=== PATIENT | male | born 1975 ===

== ENCOUNTER 2017-02-08 00:30 | Emergency (ER) | payer OTHER ==
[2017-02-08 00:54] VITALS: BMI 30.7
[2017-02-08 01:00] VITALS: TEMP 98.2
--- NOTE | 2017-02-08 01:05 | ED PDOC ---
Arrival/HPI - General Chief Complaint: Abdominal Pain Time Seen by Provider: 02/08/17 00:57 Historian: Patient - History of Present Illness Narrative History of Present Illness (Text): 02/08/17 01:05 Andrea Ellis is a 41 year old male, whose past medical history includes cholecystectomy, who presents to the Emergency department complaining of abdominal pain. Patient states he has been experiencing intermittent lower abdominal pain radiating to right flank pain for 3 weeks. Patient denies any fever, chills, chest pain, shortness of breath, nausea, vomiting, diarrhea, urinary symptoms, neck pain, headache, dizziness, or any other complaints. Time/Duration: < month (3 weeks) Symptom Onset: Gradual Symptom Course: Unchanged Activities at Onset: Rest, Light Context: Home Past Medical History - Provider Review Nursing Documentation Reviewed: Yes - Past History Past History: No Previous - Infectious Disease Hx of Infectious Diseases: None - Tetanus Immunization Tetanus Immunization: Unknown - Reproductive Currently : No - Past Medical History Past Medical History: No Previous - Cardiac Hx Cardiac Disorders: Yes - Pulmonary Hx Respiratory Disorders: No - Neurological Hx Neurological Disorder: No - HEENT Hx HEENT Disorder: No (WEARS RX GLASSES) - Renal Hx Renal Disorder: No - Endocrine/Metabolic Hx Endocrine Disorders: No - Hematological/Oncological Hx Blood Transfusions: No Hx Blood Transfusion Reaction: No - Integumentary Hx Dermatological Disorder: No - Musculoskeletal/Rheumatological Hx Falls: No - Gastrointestinal Hx Gastroesophageal Reflux: Yes - Genitourinary/Gynecological Hx Genitourinary Disorders: No - Psychiatric Hx Depression: No Hx Emotional Abuse: No Hx Physical Abuse: No Hx Substance Use: No - Past Surgical History Past Surgical History: No Previous - Surgical History Hx Cholecystectomy: Yes - Anesthesia Hx Anesthesia Reactions: No Hx Malignant Hyperthermia: No - Suicidal Assessment Feels Threatened In Home Enviroment: No Family/Social History - Physician Review Nursing Documentation Reviewed: Yes Family/Social History: No Known Family HX Smoking Status: Never Smoked Hx Alcohol Use: No Hx Substance Use: No Hx Substance Use Treatment: No Allergies/Home Meds Allergies/Adverse Reactions: Allergies No Known Allergies Allergy (Verified 02/08/17 00:54) Home Medications: Home Meds Medication Instructions Recorded Confirmed No Known Home Med 02/08/17 02/08/17 Review of Systems - Physician Review All systems were reviewed & negative as marked: Yes - Review of Systems Constitutional: Normal. absent: Fevers Eyes: Normal ENT: Normal Respiratory: Normal. absent: SOB, Cough Cardiovascular: Normal. absent: Chest Pain Gastrointestinal: Abdominal Pain. absent: Diarrhea, Nausea, Vomiting Genitourinary Male: Normal. absent: Dysuria, Frequency, Hematuria, Urinary Output Changes Musculoskeletal: Back Pain (+right flank pain). absent: Neck Pain Skin: Normal. absent: Rash Neurological: Normal. absent: Headache, Dizziness Endocrine: Normal Hemo/Lymphatic: Normal Psychiatric: Normal Physical Exam Vital Signs Reviewed: Yes Vital Signs Temp Pulse Resp BP Pulse Ox 02/08/17 03:19 80 16 134/80 98 02/08/17 02:00 66 16 126/84 97 02/08/17 01:00 98.2 F 62 18 142/90 98 Temperature: Afebrile Blood Pressure: Normal Pulse: Regular Respiratory Rate: Normal Appearance: Positive for: Well-Appearing, Non-Toxic, Comfortable Pain Distress: None Mental Status: Positive for: Alert and Oriented X 3 - Systems Exam Head: Present: Atraumatic, Normocephalic Pupils: Present: PERRL Extroacular Muscles: Present: EOMI Conjunctiva: Present: Normal Mouth: Present: Moist Mucous Membranes Neck: Present: Normal Range of Motion Respiratory/Chest: Present: Clear to Auscultation, Good Air Exchange. No: Respiratory Distress, Accessory Muscle Use Cardiovascular: Present: Regular Rate and Rhythm, Normal S1, S2. No: Murmurs Abdomen: Present: Normal Bowel Sounds. No: Tenderness, Distention, Peritoneal Signs Back: Present: Normal Inspection. No: CVA Tenderness, Midline Tenderness, Paraspinal Tenderness Upper Extremity: Present: Normal Inspection. No: Cyanosis, Edema Lower Extremity: Present: Normal Inspection. No: Edema Neurological: Present: GCS=15, CN II-XII Intact, Speech Normal Skin: Present: Warm, Dry, Normal Color. No: Rashes Psychiatric: Present: Alert, Oriented x 3, Normal Insight, Normal Concentration Medical Decision Making ED Course and Treatment: 02/08/17 01:05 Impression: 41 year old male complaining of intermittent abdominal pain radiating to right flank for 3 weeks. Plan: -- CT Abdomen and Pelvis w/o contrast -- Labs, lipase -- UA -- Reassess and disposition Prior Visits: Notes and results from previous visits were reviewed. On 01/12/2016, pt was seen in the Emergency department for diffuse abdominal pain with nausea, vomiting, and diarrhea. Pt was d/c home. Progress Notes: 02/08/17 02:35 Reviewed labs, no acute abnormalities. Reviewed radiology, CT Abdomen and Pelvis shows: No definite acute findings. 02/08/17 03:12 On re-evaluation, the patient feels better and is in no acute distress. I have discussed the results and plan with the patient, who expresses understanding. Patient in agreement with plan to discharged home. Patient is stable for discharge. Patient was instructed to follow up with physician/clinic in 1-2 days or return if symptoms worsen or new concerning symptoms arise. 02/10/17 22:23 - Lab Interpretations Lab Results: 02/08/17 01:21 02/08/17 01:21 Lab Results 02/08/17 02:14: Urine Color Yellow, Urine Appearance Clear, Urine pH 6.5, Ur Specific [place] 1.025, Urine Protein Trace H, Urine Glucose (UA) Negative, Urine Ketones Negative, Urine Blood Negative, Urine Nitrate Negative, Urine Bilirubin Negative, Urine Urobilinogen 0.2, Ur Leukocyte Esterase Negative, Urine RBC 0 - 2, Urine WBC 0 - 2, Ur Epithelial Cells 0 - 2, Amorphous Sediment Few, Urine Other Usperm 02/08/17 01:21: WBC 5.4, RBC 4.52, Hgb 13.7 L, Hct 38.8 L, MCV 85.8, MCH 30.3, MCHC 35.3, RDW 13.1, Plt Count 185, MPV 10.9, Gran % 59.2, Lymph % (Auto) 30.9, Patrick % (Auto) 6.5 H, Eos % (Auto) 3.0, Baso % (Auto) 0.4, Gran # 3.21, Lymph # 1.7, Patrick # 0.4, Eos # 0.2, Baso # 0.02, Sodium 137, Potassium 3.7, Chloride 102 , Carbon Dioxide 29, Anion Gap 10, BUN 18, Creatinine 0.7, Est GFR ( Amer ) > 60, Est GFR (Non-Af Amer) > 60, Random Glucose 93, Calcium 8.9, Total Bilirubin 0.5, AST 33, ALT 35, Alkaline Phosphatase 89, Total Protein 7.7, Albumin 4.4, Globulin 3.4, Albumin/Globulin Ratio 1.3, Lipase 65 I have reviewed the lab results: Yes - RAD Interpretation Narrative RAD Interpretations (Text): CT Abdomen and Pelvis shows: Lower thorax: There is mild bibasilar atelectasis. ABDOMEN: Liver: There are no focal liver lesions present. Gallbladder and bile ducts: There has been a cholecystectomy. No ductal dilation. Pancreas: The pancreas is normal. No ductal dilation. Spleen: The spleen is normal. Adrenals: The adrenal glands are normal. Kidneys and ureters: The kidneys are normal aside from a tiny punctate struck in left upper pole renal calculus. There is no evidence of hydronephrosis. Stomach and bowel: The stomach is normal. Extensive diverticulosis is present in the sigmoid and descending colon. There is no evidence of diverticulitis. There is mild colonic constipation. There is no evidence of intestinal obstruction. Appendix: A normal appendix is identified. PELVIS: Bladder: The bladder is normal. No stones. Reproductive: The prostate gland and seminal vesicles are normal. ABDOMEN and PELVIS: Intraperitoneal space: There is no evidence of free intraperitoneal fluid. There is no free intraperitoneal air. Bones/joints: There are mild degenerative changes present. There is mild grade 1 anterolisthesis of L5 on S1 with bilateral spondylolyses. No acute fracture. No dislocation. Soft tissues: Unremarkable. Vasculature: The aorta demonstrates mild atherosclerotic calcification. No abdominal aortic aneurysm. Lymph nodes: There is no evidence of lymphadenopathy. IMPRESSION: No definite acute findings. 02/08/17 02:36 Radiology Orders: 02/08/17 01:06 ABD & PELVIS W/O PO OR IV CONT [CT] Stat Design Teacher: Radiologist - Medication Orders Current Medication Orders: Discontinued Medications Ketorolac Tromethamine (Toradol) 30 mg IVP ONCE ONE Stop: 02/08/17 03:13 Last Admin: 02/08/17 03:22 Dose: 30 MG IVP Administration Document 02/08/17 03:22 YP (Rec: 02/08/17 03:22 YP [id number]) Charges for Administration # of IVP Administrations 1 - Scribe Statement The provider has reviewed the documentation as recorded by the Ana Herron Provider Attestation: All medical record entries made by the Scribe were at my direction and personally dictated by me. I have reviewed the chart and agree that the record accurately reflects my personal performance of the history, physical exam, medical decision making, and the department course for this patient. I have also personally directed, reviewed, and agree with the discharge instructions and disposition. Disposition/Present on Arrival - Present on Arrival Any Indicators Present on Arrival: No History of DVT/PE: No History of Uncontrolled Diabetes: No Urinary Catheter: No History of Decub. Ulcer: No History Surgical Site Infection Following: None - Disposition Have Diagnosis and Disposition been Completed?: Yes Diagnosis: Abdominal pain Disposition: HOME/ ROUTINE Disposition Time: 03:15 Patient Problems: Current Active Problems Problem Status Diagnosed Biliary colic Active Condition: GOOD Discharge Instructions (ExitCare): Acute Abdominal Pain (ED)
[2017-02-08 01:34] LABS: ADD MANUAL DIFF? NO
[2017-02-08 01:38] LABS: BASO # 0.02 K/mm3 (0.0-2.0); BASO % 0.4 % (0.0-3.0); EOS # 0.2 (0.0-0.7); GRAN # 3.21 (1.4-6.5); GRAN % 59.2 % (50.0-68.0); HEMATOCRIT 38.8 % (42.0-52.0); LYMPH # 1.7 (1.2-3.4); LYMPH % 30.9 % (22.0-35.0); MEAN CELL VOLUME 85.8 fL (80.0-105.0); MEAN CORPUSCULAR HEMOGLOBIN 30.3 pg (25.0-35.0); MEAN CORPUSCULAR HGB CONC 35.3 g/dl (31.0-37.0); MEAN PLATELET VOLUME 10.9 fl (7.0-11.0); MONO # 0.4 (0.1-0.6); MONO % 6.5 % (1.0-6.0); PLATELET COUNT 185 10^3/uL (120.0-450.0); RED CELL DISTRIBUTION WIDTH 13.1 % (11.5-14.5); WHITE BLOOD COUNT 5.4 10^3/ul (4.5-11.0)
[2017-02-08 01:42] LABS: ALB/GLOB RATIO 1.3 (1.1-1.8); ALKALINE PHOSPHATASE 89 U/L (38-133); ALT/SGPT 35 U/L (7-56); AST/SGOT 33 U/L (15-59); BILIRUBIN,TOTAL 0.5 mg/dL (0.2-1.3); BLOOD UREA NITROGEN 18 mg/dL (7-21); CALCIUM 8.9 mg/dL (8.4-10.5); CARBON DIOXIDE 29 mmol/L (21-33); CHLORIDE 102 mmol/L (98-107); GFR AFRICAN-AMERICAN > 60; GLUCOSE,RANDOM 93 mg/dL (70-110); LIPASE 65 U/L (23-300); POTASSIUM 3.7 mmol/L (3.6-5.0); SODIUM 137 mmol/L (132-148); TOTAL PROTEIN 7.7 g/dL (5.8-8.3)
[2017-02-08 02:08] VITALS: RESP 16
--- NOTE | 2017-02-08 02:17 | CT ---
EXAM: CT Abdomen and Pelvis Without Intravenous Contrast. CLINICAL HISTORY: 41 years old, male; Pain; Abdominal pain; Flank; Right; Prior surgery; Surgery date: 6+ months; Surgery type: Gallbladder removal; Additional info: Rt flank pain TECHNIQUE: Axial computed tomography images of the abdomen and pelvis without intravenous contrast. This CT exam was performed using one or more of the following dose reduction techniques: automated exposure control, adjustment of the mA and/or kV according to patient size, and/or use of iterative reconstruction technique. Coronal and sagittal reformatted images were created and reviewed. COMPARISON: MR - SPINAL CANAL LUMBAR W/O CONT 09/22/2016 9:36:30 AM FINDINGS: Lower thorax: There is mild bibasilar atelectasis. ABDOMEN: Liver: There are no focal liver lesions present. Gallbladder and bile ducts: There has been a cholecystectomy. No ductal dilation. Pancreas: The pancreas is normal. No ductal dilation. Spleen: The spleen is normal. Adrenals: The adrenal glands are normal. Kidneys and ureters: The kidneys are normal aside from a tiny punctate struck in left upper pole renal calculus. There is no evidence of hydronephrosis. Stomach and bowel: The stomach is normal. Extensive diverticulosis is present in the sigmoid and descending colon. There is no evidence of diverticulitis. There is mild colonic constipation. There is no evidence of intestinal obstruction. Appendix: A normal appendix is identified. PELVIS: Bladder: The bladder is normal. No stones. Reproductive: The prostate gland and seminal vesicles are normal. ABDOMEN and PELVIS: Intraperitoneal space: There is no evidence of free intraperitoneal fluid. There is no free intraperitoneal air. Bones/joints: There are mild degenerative changes present. There is mild grade 1 anterolisthesis of L5 on S1 with bilateral spondylolyses. No acute fracture. No dislocation. Soft tissues: Unremarkable. Vasculature: The aorta demonstrates mild atherosclerotic calcification. No abdominal aortic aneurysm. Lymph nodes: There is no evidence of lymphadenopathy. IMPRESSION: No definite acute findings.
[2017-02-08 02:29] LABS: PH,URINE 6.5 (4.7-8.0); URINE BILIRUBIN NEGATIVE (NEGATIVE); URINE BLOOD NEGATIVE (NEGATIVE); URINE GLUCOSE (UA) NEGATIVE (NEGATIVE); URINE KETONE NEGATIVE (NEGATIVE); URINE LEUKOCYTE ESTERASE NEGATIVE Leu/uL (NEGATIVE); URINE PROTEIN TRACE mg/dL (<30 mg/dL); URINE UROBILINOGEN 0.2 E.U./dL (<1 E.U./dL)
[2017-02-08 02:31] LABS: URINE APPEARANCE CLEAR (CLEAR); URINE COLOR YELLOW (YELLOW)
[2017-02-08 02:45] LABS: URINE EPITHELIAL CELLS 0 - 2 /hpf (0-5); URINE RBC 0 - 2 /hpf (0-2); URINE WBC 0 - 2 /hpf (0-6)
[2017-02-08 02:46] LABS: URINE AMORPHOUS SEDIMENT FEW
[2017-02-08 03:19] VITALS: BP 134/80; PULSE 80; O2SAT 98
== END 2017-02-08 03:43 | disposition home or self-care (01) ==
LOC: ED 00:30
DX: R10.9 Unspecified abdominal pain (principal)
CPT/HCPCS: 74176; 80053; 81001; 83690; 85025; 96374; 99283; J1885

== ENCOUNTER 2017-06-30 20:00 | Emergency (ER) | payer SELFPAY ==
[2017-06-30 20:00] VITALS: BMI 30.7
[2017-06-30 20:12] VITALS: BP 142/94; PULSE 97; RESP 16; TEMP 98.4
--- NOTE | 2017-06-30 20:38 | ED PDOC ---
Arrival/HPI - General Historian: Patient - History of Present Illness Time/Duration: > week Symptom Onset: Gradual Symptom Course: Worsening Quality: Aching, Dullness, Other ("electrical pain down RT leg") Severity Level: 6 <Khang Crawford - Last Filed: 06/30/17 21:24> <Anirudh Almonte - Last Filed: 06/30/17 21:30> - General Chief Complaint: Back Pain Time Seen by Provider: 06/30/17 20:02 - History of Present Illness Narrative History of Present Illness (Text): 06/30/17 21:05 41yo M with no significant Past medical history here for evaluation of back pain. Pain is located in the low back and radiates down the right leg. Pain is described as dull ache in back with shooting "electrical" pain down right leg. He states that the pain is worse with ambulation and worse when he bends forward or backward. He was told he had some bulging discs as seen on Lumbar MRI last year. He was doing fine until 2 weeks ago when he started having worsening back pain. He denies any Nausea, no vomiting. NO urinary changes. No Abd pain. no chest pain, no headaches. Denies any recent trauma or falls. No Loss of consciousness. PMD: Mares PMHx: none PSHx: Cholecystectomy Family Hx: Denies Social Hx: denies tobacco use, social ETOH use. No illicit drug use. Works as a cook in a restaurant NKDA 06/30/17 21:16 (Khang Crawford) Past Medical History - Provider Review Nursing Documentation Reviewed: Yes - Past History Past History: No Previous - Infectious Disease Hx of Infectious Diseases: None - Tetanus Immunization Tetanus Immunization: Unknown - Reproductive Currently : No - Past Medical History Past Medical History: No Previous - Cardiac Hx Cardiac Disorders: Yes - Pulmonary Hx Respiratory Disorders: No - Neurological Hx Neurological Disorder: No - HEENT Hx HEENT Disorder: No (WEARS RX GLASSES) - Renal Hx Renal Disorder: No - Endocrine/Metabolic Hx Endocrine Disorders: No - Hematological/Oncological Hx Blood Transfusions: No Hx Blood Transfusion Reaction: No - Integumentary Hx Dermatological Disorder: No - Musculoskeletal/Rheumatological Hx Falls: No - Gastrointestinal Hx Gastroesophageal Reflux: Yes - Genitourinary/Gynecological Hx Genitourinary Disorders: No - Psychiatric Hx Depression: No Hx Emotional Abuse: No Hx Physical Abuse: No Hx Substance Use: No - Past Surgical History Past Surgical History: No Previous - Surgical History Hx Cholecystectomy: Yes - Anesthesia Hx Anesthesia Reactions: No Hx Malignant Hyperthermia: No - Suicidal Assessment Feels Threatened In Home Enviroment: No <Khang Crawford - Last Filed: 06/30/17 21:24> Family/Social History - Physician Review Nursing Documentation Reviewed: Yes Family/Social History: No Known Family HX Smoking Status: Never Smoked Hx Alcohol Use: No Hx Substance Use: No Hx Substance Use Treatment: No <Khang Crawford - Last Filed: 06/30/17 21:24> Allergies/Home Meds <Khang Crawford - Last Filed: 06/30/17 21:24> <SuzyJoseloisa - Last Filed: 06/30/17 21:30> Allergies/Adverse Reactions: Allergies No Known Allergies Allergy (Verified 02/08/17 00:54) Review of Systems - Physician Review All systems were reviewed & negative as marked: Yes - Review of Systems Constitutional: Normal Eyes: Normal Respiratory: Normal. absent: SOB Cardiovascular: absent: Chest Pain, Calf Pain Gastrointestinal: absent: Abdominal Pain, Diarrhea, Nausea, Vomiting Musculoskeletal: Back Pain Neurological: absent: Dizziness Endocrine: absent: Diaphoresis <Khang Crawford - Last Filed: 06/30/17 21:24> Physical Exam Vital Signs Reviewed: Yes Temperature: Afebrile Blood Pressure: Hypertensive Pulse: Regular Respiratory Rate: Normal Appearance: Positive for: Well-Appearing, Comfortable Pain Distress: Moderate Mental Status: Positive for: Alert and Oriented X 3 - Systems Exam Head: Present: Atraumatic, Normocephalic Extroacular Muscles: Present: EOMI Mouth: Present: Moist Mucous Membranes Respiratory/Chest: Present: Clear to Auscultation, Good Air Exchange. No: Respiratory Distress, Accessory Muscle Use Abdomen: No: Tenderness, Distention, Peritoneal Signs, Rebound, Guarding Back: Present: Midline Tenderness, Paraspinal Tenderness, Pain with Leg Raise ( pain with right leg raise). No: CVA Tenderness Upper Extremity: Present: Normal Inspection. No: Edema Lower Extremity: Present: Normal Inspection. No: Edema, CALF TENDERNESS Neurological: Present: GCS=15 Skin: Present: Warm, Dry, Normal Color. No: Rashes Psychiatric: Present: Alert, Oriented x 3 <Khang Crawford - Last Filed: 06/30/17 21:24> Medical Decision Making <Khang Crawford - Last Filed: 06/30/17 21:24> <Anirudh Almonte - Last Filed: 06/30/17 21:30> ED Course and Treatment: 06/30/17 21:13 41yo M with low back pain/Sciatica - Lumbar MRI in Aug 2016 noted. - Toradol IM - Tramadol - Diazepam - Prescription for Tramadol, Naprosyn, Baclofen - Follow up with PMD. Discussed plan with patient. He understands and agrees. (Khang Crawford) 06/30/17 21:21 Patient Seen With Resident: In agreement with resident note which contains more details about the patient. Patient was seen and evaluated with resident. Came up with plan and treatment together. 06/30/17 21:28 MRI results from 09/10 were reviewed. Patient today with symptoms consistent with previous sciatica. Able to ambulate; in fact he walked 7 blocks to come to the hospital. Neuro exam is unremarkable and no grave concerns per history. Will d/c on nsaid, baclofen, and tramadol, and f/u pmd. (Anirudh Almonte) - RAD Interpretation Narrative RAD Interpretations (Text): 06/30/17 21:15 reviewed Lumbar MRI from August 2016 - Mild degenerative disc changes at L4-L5 and L5-S1 with spondylolysis and central protrusion. (Khang Crawford) - Medication Orders Current Medication Orders: Discontinued Medications Diazepam (Valium) 5 mg PO ONCE ONE Stop: 06/30/17 20:38 Last Admin: 06/30/17 21:12 Dose: 5 mg Ketorolac Tromethamine (Toradol) 60 mg IM STAT STA Stop: 06/30/17 20:37 Last Admin: 06/30/17 21:12 Dose: 60 mg Tramadol HCl (Ultram) 50 mg PO STAT STA Stop: 06/30/17 20:38 Last Admin: 06/30/17 21:12 Dose: 50 mg <Khang Crawford - Last Filed: 06/30/17 21:24> - PA / WAIST PLEATER / Resident Statement / has reviewed & agrees with the documentation as recorded. / has examined the patient and agrees with the treatment plan. - Scribe Statement The provider has reviewed the documentation as recorded by the Scribe <Anirudh Almonte - Last Filed: 06/30/17 21:30> - Scribe Statement Lissette Trevino Provider Scribe Attestation: All medical record entries made by the Scribe were at my direction and personally dictated by me. I have reviewed the chart and agree that the record accurately reflects my personal performance of the history, physical exam, medical decision making, and the department course for this patient. I have also personally directed, reviewed, and agree with the discharge instructions and disposition. (Anirudh Almonte) Disposition/Present on Arrival - Present on Arrival Any Indicators Present on Arrival: No History of DVT/PE: No History of Uncontrolled Diabetes: No Urinary Catheter: No History of Decub. Ulcer: No History Surgical Site Infection Following: None - Disposition Have Diagnosis and Disposition been Completed?: Yes Disposition Time: 20:38 Patient Plan: Discharge <Khang Crawford - Last Filed: 06/30/17 21:24> <Anirudh Almonte - Last Filed: 06/30/17 21:30> - Disposition Diagnosis: Sciatica Disposition: HOME/ ROUTINE Condition: GOOD Discharge Instructions (ExitCare): Sciatica (ED) Additional Instructions: 1. Follow up with your primary care physician nick 2. Use pain meds as needed sparingly 3. Alternate between warm and cold compress as needed for pain relief 4. Avoid any heavy lifting or strenuous activity 5. Return to the ER with any concerning symptoms Prescriptions: Baclofen [Lioresal] 1 cap PO TID PRN #20 tab PRN Reason: Pain, Moderate (4-7) Naproxen [Naprosyn] 500 mg PO BID PRN #30 tab PRN Reason: Pain Tramadol HCl/Acetaminophen [Ultracet Tablet] 1 - 2 tab PO Q8H PRN #20 tablet PRN Reason: Pain, Severe (8-10) Referrals: Carlos Mares [Family Provider] - Follow up with primary Forms: [employer] ([place]ic)
[2017-06-30 21:13] VITALS: O2SAT 98
== END 2017-06-30 21:13 | disposition home or self-care (01) ==
LOC: ED 20:00
DX: M54.30 Sciatica, unspecified side (principal)
CPT/HCPCS: 96372; 99282; J1885